=== PATIENT | female | born 1980 | race Caucasian/White ===

== ENCOUNTER 2017-11-03 14:00 | Emergency (ER) | payer OTHER, MEDICAID | END 2017-11-03 14:26 | disposition home or self-care (01) | LOC: E/R 14:00 | DX: R21 Rash and other nonspecific skin eruption (principal) | CPT/HCPCS: 99283; Z7502 ==

== ENCOUNTER 2018-03-16 00:33 | Emergency (ER) | payer SELFPAY, OTHER | END 2018-03-16 04:19 | disposition left against medical advice (07) | LOC: FTE 00:33 | DX: Z53.21 Procedure and treatment not carried out due to patient leaving prior to being seen by health care provider (principal) ==

== ENCOUNTER 2018-03-16 09:50 | Emergency (ER) | payer OTHER ==
[2018-03-16] MEDS: SOD CHLORIDE 0.9% 1,000 ML IV (10:53)
[2018-03-16] MEDS: DEXAMETHASONE 10 MG/ML 1 ML INJ IV (10:57)
[2018-03-16] MEDS: CLINDAMYCIN 600 MG/D5W (PMX) 50 ML IVPB (11:07)
== END 2018-03-16 12:17 | disposition home or self-care (01) ==
LOC: FTE 09:50
DX: K04.7 Periapical abscess without sinus (principal)
CPT/HCPCS: 96365; 96375; 99284-25

== ENCOUNTER 2018-08-27 19:17 | Emergency (ER) | payer OTHER ==
[2018-08-27] MEDS: KETOROLAC 60 MG INJ IM (23:54)
== END 2018-08-27 23:59 | disposition home or self-care (01) ==
LOC: FTE 19:17
DX: S09.90XA Unspecified injury of head, initial encounter (principal); R51 Headache; W22.8XXA Striking against or struck by other objects, initial encounter; Y92.9 Unspecified place or not applicable
CPT/HCPCS: 70450; 81025; 96372; 99285-25

== ENCOUNTER 2018-11-13 20:31 | Emergency (ER) | payer OTHER ==
[2018-11-14 00:02] LABS: ADD MAN DIFF? NO
[2018-11-14 00:05] LABS: BASOPHIL # 0.1 10^3/ul (0.0-0.1); BASOPHILS % 0.5 % (0.0-2.0); EOSINOPHILS # 0.3 10^3/ul (0.0-0.5); HEMOGLOBIN 13.3 g/dl (12.0-16.0); LYMPHOCYTES # 3.5 10^3/ul (0.8-2.9); LYMPHOCYTES % 28.1 % (15.0-51.0); MEAN CORPUSCULAR HEMOGLOBIN 28.4 pg (29.0-33.0); MEAN CORPUSCULAR HGB CONC 32.4 g/dl (32.0-37.0); MEAN CORPUSCULAR VOLUME 87.4 fl (82.0-101.0); MEAN PLATELET VOLUME 9.8 fl (7.4-10.4); MONOCYTE # 0.7 10^3/ul (0.3-0.9); MONOCYTES % 5.5 % (0.0-11.0); NEUTROPHIL # 7.8 10^3/ul (1.6-7.5); NEUTROPHILS % 63.3 % (39.0-77.0); PLATELET COUNT 422 10^3/UL (140-415); RED BLOOD COUNT 4.69 10^6/ul (4.20-5.40); RED CELL DISTRIBUTION WIDTH 13.8 % (11.5-14.5)
[2018-11-14 00:05] LABS: WHITE BLOOD COUNT 12.3 10^3/ul (4.8-10.8)
[2018-11-14 00:21] LABS: ADD UMIC YES; UR ASCORBIC ACID 20 mg/dL (NEGATIVE); UR BACTERIA FEW /HPF (NONE SEEN); UR BILIRUBIN (Dip) NEGATIVE (NEGATIVE); UR BLOOD (Dip) NEGATIVE (NEGATIVE); UR CLARITY CLOUDY (CLEAR); UR COLOR YELLOW (YELLOW); UR GLUCOSE (Dip) NEGATIVE (NEGATIVE); UR KETONES (Dip) NEGATIVE (NEGATIVE); UR LEUKOCYTE ESTERASE (Dip) 1+ Leu/ul (NEGATIVE); UR MUCUS FEW /HPF (NONE SEEN); UR NITRITE (Dip) NEGATIVE (NEGATIVE); UR RBC 3 /HPF (0-5); UR SPECIFIC GRAVITY (Dip) 1.019 (1.003-1.030); UR SQUAMOUS EPITHELIAL CELL MODERATE /HPF (FEW); UR TOTAL PROTEIN (Dip) NEGATIVE (NEGATIVE); UR UROBILINOGEN (Dip) 1+ mg/dL (NEGATIVE); UR WBC 6 /HPF (0-5)
[2018-11-14 00:23] LABS: INR 0.92; PROTIME 12.5 Sec (11.9-14.9)
[2018-11-14 00:24] LABS: PARTIAL THROMBOPLASTIN TIME 27.6 Sec (23.0-35.0)
[2018-11-14 00:25] LABS: ALANINE AMINOTRANSFERASE 9 IU/L (13-69); ALBUMIN 4.3 g/dl (3.3-4.9); ALBUMIN/GLOBULIN RATIO 1.26; ALKALINE PHOSPHATASE 47 IU/L (42-121); ANION GAP 11 (5-13); ASPARTATE AMINO TRANSFERASE 16 IU/L (15-46); BILIRUBIN,INDIRECT 0.1 mg/dl (0-1.1); BILIRUBIN,TOTAL 0.1 mg/dl (0.2-1.3); BLOOD UREA NITROGEN 12 mg/dl (7-20); CALCIUM 9.6 mg/dl (8.4-10.2); CARBON DIOXIDE 26 mmol/L (21-31); CHLORIDE 103 mmol/L (97-110); CREATININE 0.57 mg/dl (0.44-1.00); Estimated GFR > 60 mL/min (>60); GLUCOSE 90 mg/dl (70-220); POTASSIUM 4.1 mmol/L (3.5-5.1); SODIUM 140 mmol/L (135-144); TOTAL PROTEIN 7.7 g/dl (6.1-8.1)
== END 2018-11-14 02:17 | disposition home or self-care (01) ==
LOC: FTE 11-14 02:17
DX: O20.0 Threatened abortion (principal); O23.41 Unspecified infection of urinary tract in pregnancy, first trimester; Z3A.01 Less than 8 weeks gestation of pregnancy
CPT/HCPCS: 36415; 76801; 80053; 81001; 84702; 84703; 85025; 85610; 85730; 86900; 86901; 87086; 99284-25

== ENCOUNTER 2019-03-12 12:14 | Inpatient (IN) | payer OTHER ==
[2019-03-12] MEDS: LACTATED RINGER'S 1,000 ML IV ×3 (06:00→18:17)
[2019-03-12] MEDS: CEFAZOLIN 2 GM/50 ML (PMX) 50 ML IVPB ×2 (06:00→22:00)
[2019-03-12 13:40] LABS: ADD MAN DIFF? NO
[2019-03-12 13:42] LABS: BASOPHIL # 0.1 10^3/ul (0.0-0.1); BASOPHILS % 0.6 % (0.0-2.0); EOSINOPHILS # 0.2 10^3/ul (0.0-0.5); EOSINOPHILS % 2.1 % (0.0-7.0); HEMATOCRIT 40.9 % (37.0-47.0); HEMOGLOBIN 13.4 g/dl (12.0-16.0); LYMPHOCYTES # 2.6 10^3/ul (0.8-2.9); LYMPHOCYTES % 30.3 % (15.0-51.0); MEAN CORPUSCULAR HEMOGLOBIN 28.4 pg (29.0-33.0); MEAN CORPUSCULAR HGB CONC 32.8 g/dl (32.0-37.0); MEAN CORPUSCULAR VOLUME 86.7 fl (82.0-101.0); MEAN PLATELET VOLUME 9.8 fl (7.4-10.4); MONOCYTE # 0.4 10^3/ul (0.3-0.9); MONOCYTES % 4.7 % (0.0-11.0); NEUTROPHIL # 5.4 10^3/ul (1.6-7.5); PLATELET COUNT 361 10^3/UL (140-415); RED BLOOD COUNT 4.72 10^6/ul (4.20-5.40); RED CELL DISTRIBUTION WIDTH 13.4 % (11.5-14.5)
[2019-03-12 13:42] LABS: WHITE BLOOD COUNT 8.6 10^3/ul (4.8-10.8)
[2019-03-12 14:01] LABS: INR 0.99; PROTIME 13.2 Sec (11.9-14.9)
[2019-03-12 14:02] LABS: PARTIAL THROMBOPLASTIN TIME 30.5 Sec (23.0-35.0)
[2019-03-12] MEDS ORDERED: CEFAZOLIN 1 GM INJ (14:31)
[2019-03-12] MEDS ORDERED: PROPOFOL 20 ML (14:31)
[2019-03-12] MEDS ORDERED: FENTAnyl 50 MCG/ML VIAL (14:31)
[2019-03-12] MEDS ORDERED: MIDAZOLAM 1 MG/ML 2 ML INJ (14:31)
[2019-03-12] MEDS ORDERED: ROPIVACAINE 0.5 % 30 ML VIAL (14:31)
[2019-03-12] MEDS ORDERED: ROCURONIUM 50 MG INJ (14:31)
[2019-03-12] MEDS ORDERED: morphine SULFATE/PF (10 MG/10 ML) INJ (15:18)
[2019-03-12] MEDS: BUPIVACAINE 0.25%/EPI (SDV) 30 ML INJ (15:43)
[2019-03-12] MEDS ORDERED: SUGAMMADEX SODIUM 200 MG/2 ML VIAL IV (15:50)
[2019-03-12] MEDS ORDERED: KETOROLAC 30 MG INJ (15:50)
[2019-03-12] MEDS ORDERED: ONDANSETRON 4 MG INJ (15:50)
[2019-03-12] MEDS ORDERED: DEXAMETHASONE 4 MG/ML 5 ML INJ (15:50)
[2019-03-12] MEDS ORDERED: METOCLOPRAMIDE 10 MG INJ (15:50)
[2019-03-12] MEDS ORDERED: EPHEDrine 25 MG/5 ML SYG (16:26)
[2019-03-12] MEDS ORDERED: NALBUPHINE HCL (10 MG/1 ML) INJ IV (17:00)
[2019-03-12] MEDS ORDERED: KETOROLAC 30 MG INJ IV (17:00)
[2019-03-12] MEDS ORDERED: DIPHENHYDRAMINE 50 MG INJ IV ×2 (17:00)
[2019-03-12] MEDS ORDERED: FENTAnyl 50 MCG/ML VIAL IV ×2 (17:00)
[2019-03-12] MEDS ORDERED: NALOXONE (0.4 MG/ML) INJ IV (17:00)
[2019-03-12] MEDS ORDERED: ACETAMINOPHEN 500 MG TAB PO (17:00)
[2019-03-12] MEDS ORDERED: EPHEDrine 25 MG/5 ML SYG IV (17:00)
[2019-03-12] MEDS ORDERED: METOCLOPRAMIDE 10 MG INJ IV (17:00)
[2019-03-12] MEDS ORDERED: MEPERIDINE 25 MG INJ IV (17:00)
[2019-03-12] MEDS: AZITHROMYCIN 500MG/NS (PMX) 250 ML IVPB ×2 (17:00→22:26)
[2019-03-12] MEDS ORDERED: HYDROCODONE/APAP (5/325) TAB PO (17:00)
[2019-03-12] MEDS ORDERED: OXYCODONE/ACETAMINOPHEN (5/325) TAB PO (17:00)
[2019-03-12] MEDS ORDERED: HYDROmorphONE 0.5 MG/0.5 ML SYG IV ×2 (17:00)
[2019-03-12] MEDS ORDERED: HYDROmorphONE 1 MG/5 ML IV SYRINGE IV ×2 (17:00)
[2019-03-12] MEDS ORDERED: ONDANSETRON 4 MG INJ IV ×2 (17:00)
[2019-03-12] MEDS ORDERED: morphine 2 MG INJ IV ×2 (17:00)
[2019-03-12] MEDS ORDERED: LABETALOL HCL 20MG INJ IV (17:00)
[2019-03-12] MEDS: KETOROLAC 30 MG INJ IV (17:41)
[2019-03-12] MEDS: ACETAMINOPHEN 500 MG TAB PO ×2 (17:50→18:17)
[2019-03-12] MEDS: BUTORPHANOL 2 MG INJ IM ×2 (17:51→18:30)
[2019-03-12] MEDS ORDERED: NA PHOSPHATE/BIPHOS 133 ML ENEMA PR (18:30)
[2019-03-12] MEDS: SOD CHLORIDE 0.9% 1,000 ML IV ×2 (20:00→20:15)
[2019-03-12] MEDS: CLINDAMYCIN 300 MG CAP PO (20:00)
[2019-03-12 20:07] LABS: ABNORMAL IP MESSAGE 1; HEMATOCRIT 34.1 % (37.0-47.0); MEAN CORPUSCULAR HEMOGLOBIN 28.6 pg (29.0-33.0); MEAN CORPUSCULAR HGB CONC 32.3 g/dl (32.0-37.0); MEAN CORPUSCULAR VOLUME 88.6 fl (82.0-101.0); MEAN PLATELET VOLUME 9.8 fl (7.4-10.4); PLATELET COUNT 361 10^3/UL (140-415); RED BLOOD COUNT 3.85 10^6/ul (4.20-5.40); RED CELL DISTRIBUTION WIDTH 13.8 % (11.5-14.5)
[2019-03-12 20:07] LABS: WHITE BLOOD COUNT 27.9 10^3/ul (4.8-10.8)
[2019-03-12 20:10] LABS: ADD MAN DIFF? YES; POSITIVE DIFF @See below
[2019-03-12 20:27] LABS: ANION GAP 8 (5-13); BLOOD UREA NITROGEN 12 mg/dl (7-20); CALCIUM 8.3 mg/dl (8.4-10.2); CARBON DIOXIDE 23 mmol/L (21-31); CHLORIDE 107 mmol/L (97-110); CREATININE 0.68 mg/dl (0.44-1.00); Estimated GFR > 60 mL/min (>60); GLUCOSE 151 mg/dl (70-220); POTASSIUM 3.3 mmol/L (3.5-5.1); SODIUM 138 mmol/L (135-144)
[2019-03-12 20:29] LABS: PARTIAL THROMBOPLASTIN TIME 24.1 Sec (23.0-35.0)
[2019-03-12 20:56] LABS: BAND NEUTROPHILS #M 2.7 10^3/ul (0.0-0.6); BAND NEUTROPHILS % (M) 10 % (0-4); LYMPHOCYTES #M 0.5 10^3/ul (0.8-2.9); LYMPHOCYTES % (M) 2 % (15-51); MONOCYTE #M 1.1 10^3/ul (0.3-0.9); MONOCYTES % (M) 4 % (0-11); OVALOCYTES 1+ (0-0); PLATELET ESTIMATE NORMAL; POIKILOCYTOSIS 1+ (0-0); SEG NEUT #M 24.2 10^3/ul (1.6-7.5); SEGMENTED NEUTROPHILS (M) % 84 % (39-77); SMUDGE%M 26 % (0-0)
[2019-03-12] MEDS: SENNA/DOCUSATE NA (8.6MG/50MG) TAB PO (22:27)
[2019-03-12] MEDS: IBUPROFEN 800 MG TAB PO (22:27)
[2019-03-12 23:52] LABS: ADD MAN DIFF? NO
[2019-03-12 23:53] LABS: ABNORMAL IP MESSAGE 1; BASOPHILS % 0.1 % (0.0-2.0); HEMATOCRIT 29.2 % (37.0-47.0); HEMOGLOBIN 9.4 g/dl (12.0-16.0); LYMPHOCYTES # 0.6 10^3/ul (0.8-2.9); LYMPHOCYTES % 2.8 % (15.0-51.0); MEAN CORPUSCULAR HEMOGLOBIN 28.6 pg (29.0-33.0); MEAN CORPUSCULAR HGB CONC 32.2 g/dl (32.0-37.0); MEAN CORPUSCULAR VOLUME 88.8 fl (82.0-101.0); MEAN PLATELET VOLUME 9.8 fl (7.4-10.4); MONOCYTE # 0.3 10^3/ul (0.3-0.9); MONOCYTES % 1.5 % (0.0-11.0); NEUTROPHIL # 20.3 10^3/ul (1.6-7.5); NEUTROPHILS % 95.1 % (39.0-77.0); PLATELET COUNT 314 10^3/UL (140-415); RED BLOOD COUNT 3.29 10^6/ul (4.20-5.40); RED CELL DISTRIBUTION WIDTH 13.8 % (11.5-14.5)
[2019-03-12 23:53] LABS: WHITE BLOOD COUNT 21.3 10^3/ul (4.8-10.8)
[2019-03-12 23:54] LABS: POSITIVE DIFF @See below
[2019-03-13 00:15] LABS: ALANINE AMINOTRANSFERASE 21 IU/L (13-69); ALBUMIN 2.8 g/dl (3.3-4.9); ALBUMIN/GLOBULIN RATIO 1.03; ALKALINE PHOSPHATASE 40 IU/L (42-121); ANION GAP 5 (5-13); ASPARTATE AMINO TRANSFERASE 18 IU/L (15-46); BILIRUBIN,INDIRECT 0.6 mg/dl (0-1.1); BILIRUBIN,TOTAL 0.6 mg/dl (0.2-1.3); BLOOD UREA NITROGEN 11 mg/dl (7-20); CALCIUM 7.3 mg/dl (8.4-10.2); CARBON DIOXIDE 23 mmol/L (21-31); CHLORIDE 111 mmol/L (97-110); CREATININE 0.55 mg/dl (0.44-1.00); Estimated GFR > 60 mL/min (>60); GLUCOSE 151 mg/dl (70-220); POTASSIUM 4.5 mmol/L (3.5-5.1); SODIUM 139 mmol/L (135-144); TOTAL PROTEIN 5.5 g/dl (6.1-8.1)
[2019-03-13] MEDS: CLINDAMYCIN 300 MG CAP PO ×3 (01:00→13:57)
[2019-03-13 01:16] LABS: IMMEDIATE SPIN CROSSMATCH 1 5
[2019-03-13 03:08] LABS: IMMEDIATE SPIN CROSSMATCH 1
[2019-03-13] MEDS: CEFAZOLIN 2 GM/50 ML (PMX) 50 ML IVPB ×2 (05:50→13:58)
[2019-03-13] MEDS: IBUPROFEN 800 MG TAB PO ×3 (05:57→21:46)
[2019-03-13] MEDS: BISACODYL 10 MG SUPP PR (10:28)
[2019-03-13] MEDS: SENNA/DOCUSATE NA (8.6MG/50MG) TAB PO ×2 (10:28→20:29)
[2019-03-13] MEDS: LACTATED RINGER'S 1,000 ML IV ×2 (10:33→12:46)
[2019-03-13 11:35] LABS: HEMOGLOBIN 10.2 g/dl (12.0-16.0)
[2019-03-13 14:08] LABS: ADD MAN DIFF? NO
[2019-03-13 14:09] LABS: WHITE BLOOD COUNT 18.7 10^3/ul (4.8-10.8)
[2019-03-13 14:09] LABS: BASOPHILS % 0.2 % (0.0-2.0); HEMATOCRIT 31.1 % (37.0-47.0); HEMOGLOBIN 10.1 g/dl (12.0-16.0); LYMPHOCYTES # 1.5 10^3/ul (0.8-2.9); LYMPHOCYTES % 8.2 % (15.0-51.0); MEAN CORPUSCULAR HGB CONC 32.5 g/dl (32.0-37.0); MEAN CORPUSCULAR VOLUME 89.4 fl (82.0-101.0); MEAN PLATELET VOLUME 10.5 fl (7.4-10.4); MONOCYTE # 1.2 10^3/ul (0.3-0.9); MONOCYTES % 6.5 % (0.0-11.0); NEUTROPHIL # 15.8 10^3/ul (1.6-7.5); NEUTROPHILS % 84.7 % (39.0-77.0); PLATELET COUNT 268 10^3/UL (140-415); RED BLOOD COUNT 3.48 10^6/ul (4.20-5.40); RED CELL DISTRIBUTION WIDTH 13.9 % (11.5-14.5)
[2019-03-13] MEDS: DOXYCYCLINE 100 MG in SOD CHLORIDE 0.9% 250 ML IVPB (15:30)
[2019-03-13] MEDS: CIPROFLOXACIN 400MG/D5W 200 ML IVPB (17:02)
[2019-03-13] MEDS: metroNIDAZOLE 500 MG/NS (PMX) 100 ML IVPB ×2 (17:10→21:46)
[2019-03-13] MEDS: HYDROCODONE/APAP (5/325) TAB PO ×2 (18:05→18:50)
[2019-03-13] MEDS: ONDANSETRON 4 MG INJ IV (19:53)
[2019-03-13 21:11] LABS: ADD MAN DIFF? NO
[2019-03-13 21:12] LABS: BASOPHILS % 0.2 % (0.0-2.0); EOSINOPHILS % 0.2 % (0.0-7.0); HEMATOCRIT 30.3 % (37.0-47.0); HEMOGLOBIN 9.9 g/dl (12.0-16.0); LYMPHOCYTES # 2.1 10^3/ul (0.8-2.9); LYMPHOCYTES % 12.8 % (15.0-51.0); MEAN CORPUSCULAR HEMOGLOBIN 28.4 pg (29.0-33.0); MEAN CORPUSCULAR HGB CONC 32.7 g/dl (32.0-37.0); MEAN CORPUSCULAR VOLUME 87.1 fl (82.0-101.0); MEAN PLATELET VOLUME 9.7 fl (7.4-10.4); MONOCYTE # 0.8 10^3/ul (0.3-0.9); NEUTROPHIL # 13.1 10^3/ul (1.6-7.5); NEUTROPHILS % 81.4 % (39.0-77.0); PLATELET COUNT 238 10^3/UL (140-415); RED BLOOD COUNT 3.48 10^6/ul (4.20-5.40); RED CELL DISTRIBUTION WIDTH 14.2 % (11.5-14.5)
[2019-03-13 21:12] LABS: WHITE BLOOD COUNT 16.1 10^3/ul (4.8-10.8)
[2019-03-14] MEDS: LACTATED RINGER'S 1,000 ML IV (02:53)
[2019-03-14] MEDS: DOXYCYCLINE 100 MG in SOD CHLORIDE 0.9% 250 ML IVPB ×2 (03:24→14:34)
[2019-03-14] MEDS: CIPROFLOXACIN 400MG/D5W 200 ML IVPB (04:22)
[2019-03-14] MEDS: OXYCODONE/ACETAMINOPHEN (5/325) TAB PO ×2 (05:04→20:05)
[2019-03-14] MEDS: IBUPROFEN 800 MG TAB PO ×3 (05:39→20:55)
[2019-03-14 05:59] LABS: ADD MAN DIFF? NO
[2019-03-14] MEDS: metroNIDAZOLE 500 MG/NS (PMX) 100 ML IVPB ×2 (06:07→13:36)
[2019-03-14 06:08] LABS: WHITE BLOOD COUNT 14.3 10^3/ul (4.8-10.8)
[2019-03-14 06:08] LABS: BASOPHILS % 0.3 % (0.0-2.0); EOSINOPHILS # 0.1 10^3/ul (0.0-0.5); EOSINOPHILS % 0.7 % (0.0-7.0); HEMATOCRIT 31.7 % (37.0-47.0); HEMOGLOBIN 10.2 g/dl (12.0-16.0); LYMPHOCYTES # 2.6 10^3/ul (0.8-2.9); LYMPHOCYTES % 18.2 % (15.0-51.0); MEAN CORPUSCULAR HEMOGLOBIN 28.4 pg (29.0-33.0); MEAN CORPUSCULAR HGB CONC 32.2 g/dl (32.0-37.0); MEAN CORPUSCULAR VOLUME 88.3 fl (82.0-101.0); MEAN PLATELET VOLUME 10.1 fl (7.4-10.4); MONOCYTE # 0.8 10^3/ul (0.3-0.9); MONOCYTES % 5.6 % (0.0-11.0); NEUTROPHIL # 10.7 10^3/ul (1.6-7.5); NEUTROPHILS % 74.8 % (39.0-77.0); PLATELET COUNT 247 10^3/UL (140-415); RED BLOOD COUNT 3.59 10^6/ul (4.20-5.40); RED CELL DISTRIBUTION WIDTH 14.1 % (11.5-14.5)
[2019-03-14] MEDS: ONDANSETRON 4 MG INJ IV (09:41)
[2019-03-14] MEDS: SENNA/DOCUSATE NA (8.6MG/50MG) TAB PO ×2 (09:42→20:55)
[2019-03-14] MEDS: metroNIDAZOLE 500 MG TAB PO (17:44)
[2019-03-14] MEDS: CIPROFLOXACIN 500 MG TAB PO (17:44)
[2019-03-14] MEDS: DOXYCYCLINE 100 MG TAB PO (20:55)
[2019-03-15] MEDS: CIPROFLOXACIN 500 MG TAB PO ×2 (05:31→17:14)
[2019-03-15] MEDS: IBUPROFEN 800 MG TAB PO ×2 (05:31→14:08)
[2019-03-15 05:35] LABS: ADD MAN DIFF? NO
[2019-03-15 05:41] LABS: BASOPHIL # 0.1 10^3/ul (0.0-0.1); BASOPHILS % 0.5 % (0.0-2.0); EOSINOPHILS # 0.2 10^3/ul (0.0-0.5); EOSINOPHILS % 1.8 % (0.0-7.0); HEMATOCRIT 31.6 % (37.0-47.0); HEMOGLOBIN 10.2 g/dl (12.0-16.0); LYMPHOCYTES # 2.3 10^3/ul (0.8-2.9); MEAN CORPUSCULAR HEMOGLOBIN 28.6 pg (29.0-33.0); MEAN CORPUSCULAR HGB CONC 32.3 g/dl (32.0-37.0); MEAN CORPUSCULAR VOLUME 88.5 fl (82.0-101.0); MONOCYTE # 0.7 10^3/ul (0.3-0.9); MONOCYTES % 6.2 % (0.0-11.0); NEUTROPHIL # 7.8 10^3/ul (1.6-7.5); NEUTROPHILS % 70.2 % (39.0-77.0); PLATELET COUNT 261 10^3/UL (140-415); RED BLOOD COUNT 3.57 10^6/ul (4.20-5.40); RED CELL DISTRIBUTION WIDTH 13.8 % (11.5-14.5)
[2019-03-15 05:41] LABS: WHITE BLOOD COUNT 11.1 10^3/ul (4.8-10.8)
[2019-03-15] MEDS: DOXYCYCLINE 100 MG TAB PO (10:00)
[2019-03-15] MEDS: SENNA/DOCUSATE NA (8.6MG/50MG) TAB PO (10:01)
[2019-03-15] MEDS: metroNIDAZOLE 500 MG TAB PO ×2 (10:01→17:14)
== END 2019-03-15 18:11 | disposition home or self-care (01) | DRG 742 ==
LOC: SDS 12:14 → REC 17:30 → MS1 18:20 → 6WM 20:20
PROVIDERS: Obstetrics & Gynecology
PROC: 0UB10ZZ Excision of Left Ovary, Open Approach (ICD-10-PCS; principal; 2019-03-12 15:00)
PROC: 0UT70ZZ Resection of Bilateral Fallopian Tubes, Open Approach (ICD-10-PCS; 2019-03-12 15:00)
PROC: 30233N1 Transfusion of Nonautologous Red Blood Cells into Peripheral Vein, Percutaneous Approach (ICD-10-PCS; 2019-03-12 15:15)
PROC: 30233L1 Transfusion of Nonautologous Fresh Plasma into Peripheral Vein, Percutaneous Approach (ICD-10-PCS; 2019-03-12 15:15)
PROC: 30233K1 Transfusion of Nonautologous Frozen Plasma into Peripheral Vein, Percutaneous Approach (ICD-10-PCS; 2019-03-12 15:15)
DX: D27.1 Benign neoplasm of left ovary (principal); N99.820 Postprocedural hemorrhage of a genitourinary system organ or structure following a genitourinary system procedure; Z30.2 Encounter for sterilization; I95.9 Hypotension, unspecified
CPT/HCPCS: 36430; 76705; 80048; 80053; 85014; 85018; 85025; 85335; 85610; 85730; 86850; 86900; 86901; 86920; 88302; 88305; 99217